=== PATIENT | female | born 1950 | race Caucasian/White ===

== ENCOUNTER → 2018-08-28 | Outpatient (CLI) | payer MEDICARE | END | disposition home or self-care (01) | LOC: RAH 15:32 | PROVIDERS: ATTEND Physical Medicine & Rehabilitation | DX: M16.11 Unilateral primary osteoarthritis, right hip (principal) | CPT/HCPCS: 73502 ==

== ENCOUNTER → 2021-03-05 | Outpatient (CLI) | payer MEDICARE | END | disposition home or self-care (01) | LOC: OIH 11:17 | PROVIDERS: ATTEND Internal Medicine | DX: M19.041 Primary osteoarthritis, right hand (principal); M19.042 Primary osteoarthritis, left hand; M25.742 Osteophyte, left hand ==

== ENCOUNTER → 2022-04-04 | Outpatient (CLI) | payer MEDICARE | END | disposition home or self-care (01) | LOC: RAH 13:30 | PROVIDERS: ATTEND Physical Medicine & Rehabilitation | DX: M16.0 Bilateral primary osteoarthritis of hip (principal) | CPT/HCPCS: 73521 ==

== ENCOUNTER → 2025-06-07 | Outpatient (CLI) | payer MEDICARE ==
--- NOTE | 2025-06-13 16:39 | HMCIMG ---
EXAM: CR bilateral Hips, 3 View. CLINICAL HISTORY: PAIN IN BI LATERAL HIP COMPARISON: None provided. FINDINGS: BONES: Generalized osteopenia. No fracture JOINTS: Moderate bilateral degenerative changes SOFT TISSUES: The soft tissues are unremarkable. IMPRESSION: 1. Generalized osteopenia. 2. Moderate bilateral degenerative changes 3. No fracture /[place]
== END | disposition home or self-care (01) ==
LOC: RAH 14:27
PROVIDERS: ATTEND Physical Medicine & Rehabilitation
DX: M16.0 Bilateral primary osteoarthritis of hip (principal); M85.88 Other specified disorders of bone density and structure, other site; M25.551 Pain in right hip; M25.552 Pain in left hip
CPT/HCPCS: 73521

== ENCOUNTER → 2025-10-11 | Outpatient (CLI) | payer MEDICARE ==
--- NOTE | 2025-10-13 09:34 | HMCIMG ---
CLINICAL INDICATION: Asymptomatic menopausal state COMPARISON: None available TECHNIQUE: Bone densitometry is performed of the lumbar spine and left hip. FINDINGS: Total BMD of lumbar spine is 0.823 g/cm2 with a T-score of -2.0 and Z-score is 0.3. Total BMD of left hip is 0.589 g/cm2 with a T-score of -2.9 and Z-score is -1.1. FRAX SCORE: The 10 year fracture risk for a major osteoporotic fracture and hip fracture not reported because T score at or below -2.5 IMPRESSION: 1. Osteoporosis of left hip 2. Osteopenia of lumbar spine 3. Would recommend follow-up in 13 months World Health Organization criteria for BMD interpretation classify patients as Normal (T-score at or above -1.0), Osteopenic (T-score between -1.0 and -2.5), or Osteoporotic (T-score at or below -2.5). FRAX SCORE: A. All treatment decisions require clinical judgment and consideration of individual patient factors, including patient preferences, comorbidities, previous drug use, risk factors not captured in the FRAX model (e.g., frailty, falls, vitamin D deficiency, increased bone turnover, interval significant decline in bone density) and possible [id number]-estimation of fracture risk by FRAX. B. In addition, the NOF Guide recommends that FDA-approved medical therapies be considered in postmenopausal women and men age greater than or equal to 50 years with a: i. Hip or vertebral (clinical or morphometric) fracture. ii. T-score of less than or equal to -2.5 at the spine or hip. iii. Ten-year fracture probability by FRAX of greater than or equal to 3% for hip fracture of greater than or equal to 20% for major osteoporotic fracture.
== END | disposition home or self-care (01) ==
LOC: RAH 10:14
PROVIDERS: ATTEND Internal Medicine
DX: M81.0 Age-related osteoporosis without current pathological fracture (principal); M85.88 Other specified disorders of bone density and structure, other site; Z78.0 Asymptomatic menopausal state
CPT/HCPCS: 77080